=== PATIENT | female | born 1985 | race Caucasian/White ===

== ENCOUNTER 2016-11-05 17:46 | Emergency (ER) | payer OTHER ==
[~2016-11-05] VITALS: Ht 162.6 cm; Wt 84.9 kg
[~2016-11-05 17:46] MED LIST: ALBUTEROL17 GM IH; ATIVAN0.5 MG PO; BACTRIM,SEPT1 TABLET PO; CLARITIN,ALAVAR10 MG PO; CLEOCIN300 MG PO; DICLOFENAC POTA50 MG PO; DIFLUCAN150 MG PO; Dilaudid PO; ENDOCET 5-3251 EACH; ENDOCET 5-3251 EACH PO; FERROUS SULFAT325 MG PO; FLOMAX0.4 MG PO; LIDOCAINE20 MG/1 M5 PO; LORAZEPAM0.5 MG; LYRICA50 MG PO; METHOCARBAMOL500 MG; NEXIUM40 MG; NEXIUM40 MG PO; NOHOMEMEDS; PERCOCET 5/31 TABLET PO; PRILOSEC20 MG PO; PROAIR HFA8.5 GM IH; PROVENTIL,2.5 MG/0.5 IH; PROVENTIL,2.5 MG/3 M IH; Proventil,Ventolin H IH; RANITIDINE HCL150 MG PO; ROBAXIN500 MG PO; SEROQUEL50 MG PO; SSD20 GM; TESSALON200 MG PO; TYLENOL EXTRA500 MG PO; TYLENOL WITH C1 EACH PO; Tylenol Extra Streng PO; XANAX0.5 MG PO; ZOFRAN ODT4 MG PO; ZOFRAN4 MG PO
[2016-11-05 18:54] LABS: ADD MIUA? YES; BILIRUBIN NEGATIVE; BLOOD LARGE; COLOR YELLOW ((YELLOW)); GLUCOSE (STRIP) NEGATIVE; KETONES NEGATIVE; LEUKOCYTES NEGATIVE; NITRITE NEGATIVE; PROTEIN (STRIP) NEGATIVE; SPECIFIC GRAVITY 1.025 (1.000-1.030); UROBILINOGEN 0.2 MG/DL (0.2-1.0)
[2016-11-05 19:00] LABS: BACTERIA NONE SEEN /HPF; EPITHELIAL CELLS RARE /HPF; MUCUS TRACE /LPF; RED BLOOD CELLS TNTC /HPF (0-5); WHITE BLOOD CELLS 0-5 /HPF (0-5)
[2016-11-05 19:18] LABS: EOSINOPHIL (%) 0.7 % (0-5); HEMATOCRIT 29.8 % (36.0-46.0); IMMATURE GRANULOCYTE (%) 0.3 % (0.0-0.7); LYMPHOCYTE COUNT 1.5 K/uL (1.0-2.8); MCH 17.5 PG (29.0-34.0); MCHC 26.5 G/DL (30.0-36.0); MCV 65.9 FL (83-99); MEAN PLAT.VOLUME 8.7 uM^3 (9.5-12.4); MONOCYTE (%) 5.6 % (3-12); MONOCYTE COUNT 0.3 K/uL (0-0.8); NEUTROPHIL (%) 68.2 % (45-76); PLATELET COUNT 323 K/uL (156-360); RBC DIS.WIDTH-CV 19.8 % (11.8-14.6); RBC DIS.WIDTH-SD 45.5 % (39-53); RED BLOOD COUNT 4.52 M/uL (3.80-5.20); WHITE BLOOD COUNT 5.9 K/uL (4.1-10.2)
[2016-11-05 19:33] LABS: CHLORIDE 106 mEq/L (99-109); POTASSIUM 3.7 mEq/L (3.7-5.4); SODIUM 137 mEq/L (136-147)
[2016-11-05 19:35] LABS: GLUCOSE 101 mg/dL (70-99)
[2016-11-05 19:36] LABS: ANION GAP 7 MEQ/L (2-14)
[2016-11-05 19:37] LABS: TOTAL BILIRUBIN 0.3 mg/dL (0.0-1.0)
[2016-11-05 19:38] LABS: ALKALINE PHOSPHATASE 60 IU/L (3-129); GFR ESTIMATE (CALCULATED) > 59 mL/min/
[2016-11-05 19:40] LABS: UREA NITROGEN (BUN) 18 mg/dL (9-23)
[2016-11-05 19:49] LABS: QUANTITATIVE HCG < 4.0 MIU/ML
[2016-11-05] MEDS ORDERED: PEPCID20 MG PO (20:12)
[2016-11-05] MEDS ORDERED: CARAFATE1 GM PO (20:12)
[2016-11-05] MEDS ORDERED: ZOFRAN ODT8 MG PO (20:12)
[2016-11-05 20:18] VITALS: BP 126/65
== END 2016-11-05 20:19 | disposition home or self-care (01) ==
LOC: EME 17:46
PROVIDERS: Physician Assistant
DX: K29.70 Gastritis, unspecified, without bleeding (principal); D64.9 Anemia, unspecified; J45.909 Unspecified asthma, uncomplicated; M79.7 Fibromyalgia; K21.9 Gastro-esophageal reflux disease without esophagitis; Z87.442 Personal history of urinary calculi; Z87.891 Personal history of nicotine dependence
CPT/HCPCS: 80053; 81003; 84702; 85025; 99281; 99284

== ENCOUNTER 2017-07-30 23:34 | Emergency (ER) | payer OTHER ==
[~2017-07-30] VITALS: Ht 162.6 cm; Wt 84.9 kg
[~2017-07-30 23:34] MED LIST changes: +CARAFATE1 GM PO; +PEPCID20 MG PO; +ZOFRAN ODT8 MG PO
[2017-07-31 01:25] LABS: APPEARANCE CLEAR ((CLEAR)); BILIRUBIN NEGATIVE; BLOOD MODERATE; COLOR YELLOW ((YELLOW)); GLUCOSE (STRIP) NEGATIVE; KETONES NEGATIVE; LEUKOCYTES NEGATIVE; NITRITE NEGATIVE; PROTEIN (STRIP) 30; SPECIFIC GRAVITY 1.028 (1.000-1.030); UROBILINOGEN 0.2 MG/DL (0.2-1.0)
[2017-07-31 01:27] LABS: BACTERIA NONE SEEN /HPF; EPITHELIAL CELLS 1+ /HPF; MUCUS TRACE /LPF; RED BLOOD CELLS 0-5 /HPF (0-5); UCUL ADDED? NO; WHITE BLOOD CELLS 0-5 /HPF (0-5)
[2017-07-31 05:58] LABS: ALBUMIN 4.3 g/dL (3.2-4.8)
[2017-07-31 06:01] LABS: TOTAL PROTEIN 7.7 g/dL (6.4-8.3)
[2017-07-31 06:03] LABS: TOTAL BILIRUBIN 0.6 mg/dL (0.0-1.0)
[2017-07-31 06:04] LABS: ALKALINE PHOSPHATASE 70 IU/L (3-129)
[2017-07-31 06:06] LABS: AST (GOT) 15 IU/L (2-34)
[2017-07-31 06:07] LABS: ALT (GPT) 11 IU/L (3-49); DIRECT BILIRUBIN 0.3 mg/dL (0.0-0.3)
[2017-07-31 06:08] LABS: LIPASE 28 U/L (1.0-51.0)
[2017-07-31 06:20] VITALS: BP 131/89
== END 2017-07-31 06:21 | disposition home or self-care (01) ==
LOC: EME 23:34
PROVIDERS: Emergency Medicine
DX: S13.4XXA Sprain of ligaments of cervical spine, initial encounter (principal); M79.601 Pain in right arm; M79.602 Pain in left arm; M54.9 Dorsalgia, unspecified; W20.8XXA Other cause of strike by thrown, projected or falling object, initial encounter; R14.0 Abdominal distension (gaseous); R10.10 Upper abdominal pain, unspecified; N20.0 Calculus of kidney; Q89.09 Congenital malformations of spleen; J45.909 Unspecified asthma, uncomplicated; Z87.442 Personal history of urinary calculi; Z88.0 Allergy status to penicillin; Z87.891 Personal history of nicotine dependence
CPT/HCPCS: 71045; 71046; 72125; 74176; 80076; 81003; 81025; 83690; 99281; 99284

== ENCOUNTER 2017-08-10 16:15 | Emergency (ER) | payer OTHER ==
[~2017-08-10] VITALS: Ht 162.6 cm; Wt 84.4 kg
[2017-08-10 17:42] LABS: APPEARANCE CLOUDY ((CLEAR)); BILIRUBIN NEGATIVE; BLOOD MODERATE; COLOR YELLOW ((YELLOW)); GLUCOSE (STRIP) NEGATIVE; KETONES NEGATIVE; LEUKOCYTES NEGATIVE; NITRITE NEGATIVE; PROTEIN (STRIP) 30; SPECIFIC GRAVITY 1.025 (1.000-1.030); UROBILINOGEN 0.2 MG/DL (0.2-1.0)
[2017-08-10 17:43] LABS: HEMATOCRIT 28.6 % (36.0-46.0); HEMOGLOBIN 7.7 G/DL (11.9-15.5); MCH 17.9 PG (29.0-34.0); MCHC 26.9 G/DL (30.0-36.0); MCV 66.4 FL (83-99); PLATELET COUNT 290 K/uL (156-360); RBC DIS.WIDTH-SD 44.8 % (39-53); RED BLOOD COUNT 4.31 M/uL (3.80-5.20); WHITE BLOOD COUNT 7.7 K/uL (4.1-10.2)
[2017-08-10 17:47] LABS: BACTERIA 1+ /HPF; EPITHELIAL CELLS 2+ /HPF; MUCUS 2+ /LPF; RED BLOOD CELLS 0-5 /HPF (0-5); UCUL ADDED? NO; WHITE BLOOD CELLS 0-5 /HPF (0-5)
[2017-08-10 17:48] LABS: CHLORIDE 103 mEq/L (99-109); POTASSIUM 4.1 mEq/L (3.7-5.4); SODIUM 138 mEq/L (136-147)
[2017-08-10 17:50] LABS: GLUCOSE 94 mg/dL (70-99)
[2017-08-10 17:54] LABS: CREATININE 0.7 mg/dL (0.6-1.3); GFR ESTIMATE (CALCULATED) > 59 mL/min/; UREA NITROGEN (BUN) 16 mg/dL (9-23)
[2017-08-10 20:40] LABS: QUANTITATIVE HCG < 4.0 MIU/ML
[2017-08-10 20:41] LABS: TROP-I INTERPRETATION NEGATIVE; TROPONIN-I < 0.01 ng/mL (0.0-0.30)
[2017-08-10] MEDS ORDERED: ZOFRAN4 MG PO (23:24)
[2017-08-10 23:28] LABS: TROP-I INTERPRETATION NEGATIVE; TROPONIN-I < 0.01 ng/mL (0.0-0.30)
[2017-08-10 23:51] VITALS: BP 134/88
[2017-08-17] MEDS ORDERED: TYLENOL EXTRA500 MG PO (18:58)
== END 2017-08-10 23:55 | disposition home or self-care (01) ==
LOC: EME 16:15
PROVIDERS: Emergency Medicine
DX: R07.89 Other chest pain (principal); D64.9 Anemia, unspecified; R11.2 Nausea with vomiting, unspecified; R19.7 Diarrhea, unspecified; M79.7 Fibromyalgia; J45.909 Unspecified asthma, uncomplicated; K21.9 Gastro-esophageal reflux disease without esophagitis; L40.9 Psoriasis, unspecified; F90.9 Attention-deficit hyperactivity disorder, unspecified type; F41.9 Anxiety disorder, unspecified; F31.9 Bipolar disorder, unspecified; Z87.891 Personal history of nicotine dependence; Z87.442 Personal history of urinary calculi; Z87.19 Personal history of other diseases of the digestive system; Z88.0 Allergy status to penicillin; Z88.5 Allergy status to narcotic agent; Z88.1 Allergy status to other antibiotic agents; Z88.6 Allergy status to analgesic agent; Z88.2 Allergy status to sulfonamides
CPT/HCPCS: 80048; 81003; 84484; 84702; 85027; 93005; 99281; 99285; J2405; J7030

== ENCOUNTER 2017-08-27 16:36 | Emergency (ER) | payer OTHER ==
[~2017-08-27] VITALS: Ht 162.6 cm; Wt 83.6 kg
[2017-08-27 17:18] LABS: CHLORIDE 106 mEq/L (99-109); POTASSIUM 3.6 mEq/L (3.7-5.4); SODIUM 140 mEq/L (136-147)
[2017-08-27 17:20] LABS: GLUCOSE 85 mg/dL (70-99); HEMATOCRIT 35.5 % (36.0-46.0); HEMOGLOBIN 10.2 G/DL (11.9-15.5); MCH 20.4 PG (29.0-34.0); MCHC 28.7 G/DL (30.0-36.0); MCV 70.9 FL (83-99); PLATELET COUNT 297 K/uL (156-360); RBC DIS.WIDTH-SD 52.3 % (39-53); RED BLOOD COUNT 5.01 M/uL (3.80-5.20); WHITE BLOOD COUNT 6.2 K/uL (4.1-10.2)
[2017-08-27] MEDS ORDERED: SIMETHICONE80 MG PO (17:20)
[2017-08-27] MEDS ORDERED: REGLAN10 MG PO (17:20)
[2017-08-27 17:24] LABS: CREATININE 0.7 mg/dL (0.6-1.3); GFR ESTIMATE (CALCULATED) > 59 mL/min/
[2017-08-27 17:25] LABS: UREA NITROGEN (BUN) 13 mg/dL (9-23)
[2017-08-27 17:28] LABS: TROP-I INTERPRETATION NEGATIVE; TROPONIN-I < 0.01 ng/mL (0.0-0.30)
[2017-08-27 18:50] VITALS: BP 134/91
== END 2017-08-27 18:50 | disposition home or self-care (01) ==
LOC: EME 16:36
DX: R07.89 Other chest pain (principal); K21.9 Gastro-esophageal reflux disease without esophagitis; K29.70 Gastritis, unspecified, without bleeding; D64.9 Anemia, unspecified; J45.909 Unspecified asthma, uncomplicated; M79.7 Fibromyalgia; G43.909 Migraine, unspecified, not intractable, without status migrainosus; L40.9 Psoriasis, unspecified; F41.9 Anxiety disorder, unspecified; F31.9 Bipolar disorder, unspecified; F90.9 Attention-deficit hyperactivity disorder, unspecified type; Z87.891 Personal history of nicotine dependence; Z87.11 Personal history of peptic ulcer disease; Z87.442 Personal history of urinary calculi; Z98.51 Tubal ligation status; Z88.0 Allergy status to penicillin; Z88.1 Allergy status to other antibiotic agents; Z88.5 Allergy status to narcotic agent; Z88.6 Allergy status to analgesic agent; Z88.2 Allergy status to sulfonamides; Z88.8 Allergy status to other drugs, medicaments and biological substances
CPT/HCPCS: 71046; 80048; 84484; 85027; 86850; 86900; 86901; 93005; 99281; 99284

== ENCOUNTER 2017-10-01 08:44 | Emergency (ER) | payer OTHER ==
[~2017-10-01] VITALS: Ht 162.6 cm; Wt 80.7 kg
[~2017-10-01 08:44] MED LIST changes: +REGLAN10 MG PO; +SIMETHICONE80 MG PO
[2017-10-01 10:06] LABS: HEMATOCRIT 36.2 % (36.0-46.0); HEMOGLOBIN 10.8 G/DL (11.9-15.5); MCH 22.1 PG (29.0-34.0); MCHC 29.8 G/DL (30.0-36.0); MCV 74.2 FL (83-99); PLATELET COUNT 224 K/uL (156-360); RBC DIS.WIDTH-CV 20.1 % (11.8-14.6); RBC DIS.WIDTH-SD 53.1 % (39-53); RED BLOOD COUNT 4.88 M/uL (3.80-5.20); WHITE BLOOD COUNT 3.5 K/uL (4.1-10.2)
[2017-10-01 10:09] LABS: ALBUMIN 4.2 g/dL (3.2-4.8); CHLORIDE 104 mEq/L (99-109); POTASSIUM 3.6 mEq/L (3.7-5.4); SODIUM 138 mEq/L (136-147)
[2017-10-01 10:11] LABS: GLUCOSE 90 mg/dL (70-99); TOTAL PROTEIN 7.7 g/dL (6.4-8.3)
[2017-10-01 10:13] LABS: TOTAL BILIRUBIN 1.2 mg/dL (0.0-1.0)
[2017-10-01 10:15] LABS: ALKALINE PHOSPHATASE 72 IU/L (3-129); CREATININE 0.7 mg/dL (0.6-1.3); GFR ESTIMATE (CALCULATED) > 59 mL/min/
[2017-10-01 10:16] LABS: AST (GOT) 19 IU/L (2-34); UREA NITROGEN (BUN) 15 mg/dL (9-23)
[2017-10-01 10:18] LABS: ALT (GPT) 11 IU/L (3-49)
[2017-10-01] MEDS ORDERED: PROMETHAZINE HC25 M1 PO (11:27)
[2017-10-01 11:50] VITALS: BP 146/81
== END 2017-10-01 11:59 | disposition home or self-care (01) ==
LOC: EME 08:44
PROVIDERS: Physician Assistant
DX: K21.9 Gastro-esophageal reflux disease without esophagitis (principal); F41.9 Anxiety disorder, unspecified; Z87.11 Personal history of peptic ulcer disease; D64.9 Anemia, unspecified; J45.909 Unspecified asthma, uncomplicated; Z87.442 Personal history of urinary calculi; F90.9 Attention-deficit hyperactivity disorder, unspecified type; M79.7 Fibromyalgia; Z88.6 Allergy status to analgesic agent; Z88.2 Allergy status to sulfonamides; Z88.0 Allergy status to penicillin; Z87.891 Personal history of nicotine dependence
CPT/HCPCS: 80053; 85027; 99281; 99283; Q0169

== ENCOUNTER 2017-10-11 17:53 | Emergency (ER) | payer OTHER ==
[~2017-10-11] VITALS: Ht 162.6 cm; Wt 80.6 kg
[~2017-10-11 17:53] MED LIST changes: +PROMETHAZINE HC25 M1 PO
[2017-10-11 20:16] LABS: HEMATOCRIT 35.4 % (36.0-46.0); HEMOGLOBIN 10.5 G/DL (11.9-15.5); MCH 22.3 PG (29.0-34.0); MCHC 29.7 G/DL (30.0-36.0); MCV 75.3 FL (83-99); PLATELET COUNT 157 K/uL (156-360); RBC DIS.WIDTH-CV 18.8 % (11.8-14.6); RBC DIS.WIDTH-SD 51.2 % (39-53); WHITE BLOOD COUNT 5.9 K/uL (4.1-10.2)
[2017-10-11 20:25] LABS: ALBUMIN 4.5 g/dL (3.2-4.8)
[2017-10-11 20:26] LABS: CHLORIDE 103 mEq/L (99-109); POTASSIUM 3.5 mEq/L (3.7-5.4); SODIUM 140 mEq/L (136-147)
[2017-10-11 20:28] LABS: GLUCOSE 92 mg/dL (70-99); TOTAL PROTEIN 7.9 g/dL (6.4-8.3)
[2017-10-11 20:30] LABS: TOTAL BILIRUBIN 0.9 mg/dL (0.0-1.0)
[2017-10-11 20:31] LABS: ALKALINE PHOSPHATASE 68 IU/L (3-129)
[2017-10-11 20:32] LABS: CREATININE 0.7 mg/dL (0.6-1.3); GFR ESTIMATE (CALCULATED) > 59 mL/min/
[2017-10-11 20:33] LABS: AST (GOT) 15 IU/L (2-34); UREA NITROGEN (BUN) 13 mg/dL (9-23)
[2017-10-11 20:35] LABS: ALT (GPT) 11 IU/L (3-49); LIPASE 24 U/L (1.0-51.0)
[2017-10-11 20:41] LABS: QUANTITATIVE HCG < 4.0 MIU/ML
[2017-10-11] MEDS ORDERED: FLEXERIL10 MG PO (21:18)
[2017-10-11] MEDS ORDERED: PEPCID20 MG PO (21:21)
[2017-10-11 21:32] VITALS: BP 155/94
== END 2017-10-11 21:32 | disposition home or self-care (01) ==
LOC: EME 17:53
PROVIDERS: Physician Assistant
DX: M94.0 Chondrocostal junction syndrome [Tietze] (principal); F41.9 Anxiety disorder, unspecified; K21.9 Gastro-esophageal reflux disease without esophagitis; J45.909 Unspecified asthma, uncomplicated; M79.7 Fibromyalgia; G43.909 Migraine, unspecified, not intractable, without status migrainosus; L40.9 Psoriasis, unspecified; N80.9 Endometriosis, unspecified; F90.9 Attention-deficit hyperactivity disorder, unspecified type; F31.9 Bipolar disorder, unspecified; Z87.891 Personal history of nicotine dependence; Z87.19 Personal history of other diseases of the digestive system; Z87.442 Personal history of urinary calculi; Z98.51 Tubal ligation status; Z88.6 Allergy status to analgesic agent; Z88.2 Allergy status to sulfonamides; Z88.0 Allergy status to penicillin; Z88.5 Allergy status to narcotic agent; Z88.1 Allergy status to other antibiotic agents; Z88.8 Allergy status to other drugs, medicaments and biological substances
CPT/HCPCS: 71100; 80053; 83690; 84702; 85027; 99281; 99284

== ENCOUNTER 2017-10-15 20:33 | Emergency (ER) | payer OTHER ==
[~2017-10-15] VITALS: Ht 162.6 cm; Wt 79.7 kg
[~2017-10-15 20:33] MED LIST changes: +FLEXERIL10 MG PO
[2017-10-15 21:06] LABS: HEMATOCRIT 37.7 % (36.0-46.0); HEMOGLOBIN 11.1 G/DL (11.9-15.5); MCH 22.5 PG (29.0-34.0); MCHC 29.4 G/DL (30.0-36.0); MCV 76.3 FL (83-99); PLATELET COUNT 180 K/uL (156-360); RBC DIS.WIDTH-CV 18.6 % (11.8-14.6); RBC DIS.WIDTH-SD 51.1 % (39-53); RED BLOOD COUNT 4.94 M/uL (3.80-5.20); WHITE BLOOD COUNT 7.1 K/uL (4.1-10.2)
[2017-10-15 21:16] LABS: APPEARANCE SL.HAZY ((CLEAR)); BILIRUBIN NEGATIVE; BLOOD LARGE; COLOR YELLOW ((YELLOW)); GLUCOSE (STRIP) NEGATIVE; KETONES NEGATIVE; LEUKOCYTES NEGATIVE; NITRITE NEGATIVE; PROTEIN (STRIP) 30; SPECIFIC GRAVITY 1.024 (1.000-1.030)
[2017-10-15 21:16] LABS: ALBUMIN 4.7 g/dL (3.2-4.8); CHLORIDE 102 mEq/L (99-109); POTASSIUM 3.7 mEq/L (3.7-5.4); SODIUM 139 mEq/L (136-147)
[2017-10-15 21:18] LABS: GLUCOSE 94 mg/dL (70-99)
[2017-10-15 21:19] LABS: TOTAL PROTEIN 8.1 g/dL (6.4-8.3)
[2017-10-15 21:21] LABS: TOTAL BILIRUBIN 0.7 mg/dL (0.0-1.0)
[2017-10-15 21:22] LABS: ALKALINE PHOSPHATASE 61 IU/L (3-129); CREATININE 0.8 mg/dL (0.6-1.3); GFR ESTIMATE (CALCULATED) > 59 mL/min/
[2017-10-15 21:23] LABS: UREA NITROGEN (BUN) 11 mg/dL (9-23)
[2017-10-15 21:24] LABS: AST (GOT) 17 IU/L (2-34)
[2017-10-15 21:25] LABS: ALT (GPT) 14 IU/L (3-49); LIPASE 35 U/L (1.0-51.0)
[2017-10-15 21:31] LABS: QUANTITATIVE HCG < 4.0 MIU/ML
[2017-10-15 21:49] LABS: EPITHELIAL CELLS 3+ /HPF; RED BLOOD CELLS RARE /HPF (0-5); WHITE BLOOD CELLS 0-5 /HPF (0-5)
[2017-10-15 21:50] LABS: BACTERIA 2+ /HPF; MUCUS 4+ /LPF; UCUL ADDED? YES
[2017-10-15] MEDS ORDERED: CEFTIN250 MG PO (21:52)
[2017-10-15 22:12] VITALS: BP 139/96
== END 2017-10-15 22:13 | disposition home or self-care (01) ==
LOC: EME 20:33
DX: J32.9 Chronic sinusitis, unspecified (principal); J45.909 Unspecified asthma, uncomplicated; F41.9 Anxiety disorder, unspecified; K21.9 Gastro-esophageal reflux disease without esophagitis; M79.7 Fibromyalgia; Z87.891 Personal history of nicotine dependence; D64.9 Anemia, unspecified; Z88.6 Allergy status to analgesic agent; Z88.2 Allergy status to sulfonamides; Z88.0 Allergy status to penicillin; Z87.442 Personal history of urinary calculi; Z87.19 Personal history of other diseases of the digestive system
CPT/HCPCS: 80053; 81003; 83690; 84702; 85027; 87086; 99281; 99283

== ENCOUNTER 2017-12-04 22:02 | Emergency (ER) | payer OTHER ==
[~2017-12-04] VITALS: Ht 162.6 cm; Wt 78.4 kg
[~2017-12-04 22:02] MED LIST changes: +CEFTIN250 MG PO
[2017-12-04] MEDS ORDERED: PERCOCET 5/31 TABLET PO (23:58)
[2017-12-05 01:02] VITALS: BP 156/90
== END 2017-12-05 01:04 | disposition home or self-care (01) ==
LOC: EME 22:02
PROC: 2W3QX1Z Immobilization of Right Lower Leg using Splint (ICD-10-PCS; principal; 2017-12-04)
DX: S92.901A Unspecified fracture of right foot, initial encounter for closed fracture (principal); W17.89XA Other fall from one level to another, initial encounter; Y93.44 Activity, trampolining; F41.9 Anxiety disorder, unspecified; Z87.891 Personal history of nicotine dependence; Z87.442 Personal history of urinary calculi; Z88.6 Allergy status to analgesic agent; Z88.2 Allergy status to sulfonamides; Z88.1 Allergy status to other antibiotic agents; Z88.0 Allergy status to penicillin; Z88.5 Allergy status to narcotic agent; Z88.8 Allergy status to other drugs, medicaments and biological substances
CPT/HCPCS: 73630; 99281; 99284